=== PATIENT | male | born 1960 | race Two or more races ===

== ENCOUNTER 2021-06-11 04:28 | Emergency (ER) | payer MEDICAID ==
[~2021-06-11] VITALS: Ht 172.7 cm; Wt 89.8 kg
--- NOTE | 2021-06-11 04:30 | NUR ---
PT AAOX4. BIB SON C/O MID UPPER ABD PAIN SINCE YESTERDAY, -N/V. PLACED IN BED 10 ON MONITOR AND PULSE OX. VSS.
--- NOTE | 2021-06-11 06:13 | NUR ---
URINE COLLECTED, SENT TO LAB.
[2021-06-11] MEDS ORDERED: KETOROLAC TROMETHAMINE 15 MG/ML VIAL ONE (06:20)
[2021-06-11] MEDS ORDERED: MAG HYDROX/AL HYDROX/SIMETH 30 ML UDC ONE (06:20)
[2021-06-11] MEDS ORDERED: LIDOCAINE VISCOUS 2% UD 15 ML UDC ONE (06:21)
[2021-06-11] MEDS ORDERED: LIDOCAINE VISCOUS 2% UD 15 ML UDC MM ONE (06:30)
[2021-06-11] MEDS ORDERED: IV NS 0.9% 500 ML BAG IV ONE (06:30)
[2021-06-11] MEDS ORDERED: MAG HYDROX/AL HYDROX/SIMETH 30 ML UDC PO ONE (06:30)
[2021-06-11] MEDS ORDERED: KETOROLAC TROMETHAMINE INJ 30 MG/ML VIAL IV ONE (06:30)
[2021-06-11] MEDS ORDERED: ONDANSETRON HCL/PF - ER 4 MG/2 ML VIAL IV ONE (06:30)
[2021-06-11 06:35] LABS: BASOPHILS % (AUTO) 0.1 % (0.0-2.0); EOSINOPHILS % (AUTO) 0.1 % (0.0-6.0); HEMATOCRIT 42 % (39-51); HEMOGLOBIN 14.7 g/dL (13.5-17.5); LYMPHOCYTES % (AUTO) 7.2 % (20.0-44.0); MEAN CORPUSCULAR HGB CONC 35 g/dl (31.0-36.0); MEAN CORPUSCULAR VOLUME 100 fL (80-96); MONOCYTES # (AUTO) 0.5 K/uL (0.1-1.30); MONOCYTES % (AUTO) 3.6 % (2.0-12.0); NEUTROPHILS # (AUTO) 12.6 K/uL (1.8-8.9); PLATELET COUNT (AUTO) 219 K/uL (150-450); RED BLOOD CELL COUNT(AUTO) 4.19 MIL/uL (4.5-6.0); WHITE BLOOD COUNT (AUTO) 14.2 K/uL (4.3-11.0)
[2021-06-11] MEDS ORDERED: ONDANSETRON HCL/PF 4 MG/2 ML VIAL ONE (06:35)
[2021-06-11 06:54] LABS: ALBUMIN 4.2 g/dL (3.4-5.0); BILIRUBIN,DIRECT 0.3 mg/dL (0.0-0.2); BILIRUBIN,TOTAL 1.2 mg/dL (0.2-1.0); CALCIUM, SERUM 8.8 mg/dL (8.5-10.1); CREATININE 1.1 mg/dL (0.6-1.3); TOTAL PROTEIN, SERUM 8.5 g/dL (6.4-8.2)
[2021-06-11 06:58] LABS: POTASSIUM 2.7 mmol/L (3.5-5.1)
--- NOTE | 2021-06-11 07:12 | NUR ---
AWAITING COVID SWAB.
--- NOTE | 2021-06-11 07:25 | NUR ---
MOVE SHEET SUBMITTED.
[2021-06-11] MEDS ORDERED: ENOXAPARIN SODIUM 80 MG/0.8 ML DISP.SYRIN SQ ONE (07:30)
[2021-06-11 07:31] LABS: BILIRUBIN,URINE NEGATIVE (NEGATIVE); COLOR,URINE YELLOW (YELLOW); LEUKOCYTE ESTERASE ,URINE NEGATIVE (NEGATIVE); NITRITE, URINE NEGATIVE (NEGATIVE); PH,URINE 7.5 (5.0-8.0); PROTEIN,URINE 100 mg/dl (NEGATIVE); UGLUCOSE NEGATIVE (NEGATIVE); UROBILINOGEN,URINE 0.2 EU/dL (0.2)
--- NOTE | 2021-06-11 07:42 | NUR ---
COVID TEST COLLECTED AND SENT
[2021-06-11] MEDS ORDERED: POTASSIUM CHLORIDE 20 MEQ TAB.PRT.SR PO ONE ×2 (08:30→09:33)
[2021-06-11] MEDS ORDERED: AMLO-213 PO (08:40)
[2021-06-11] MEDS ORDERED: LOVA10TA PO (08:40)
[2021-06-11] MEDS ORDERED: ASPI-1420 PO (08:40)
[2021-06-11] MEDS ORDERED: LISI1TAB32 PO (08:40)
[2021-06-11] MEDS ORDERED: METF-440 PO (08:40)
[2021-06-11] MEDS ORDERED: GLYB5TAB7 PO (08:40)
[2021-06-11 08:46] LABS: BACTERIA,URINE Rare /HPF (None Seen); RBC,URINE 0-2 /HPF (0-2); SQUAMOUS EPITHELIAL CELL,UR Rare /HPF (None Seen); WBC,URINE NONE SEEN /HPF (0-3)
--- NOTE | 2021-06-11 09:19 | NUR ---
FAXED COVID RESULT TO [phone]
--- NOTE | 2021-06-11 09:27 | NUR ---
PT ACCEPTED TO [facility] AWAITING BED INFO.
[2021-06-11] MEDS: POTASSIUM CL. PREMIX PERIPHER. 50 ML IV SCH ×4 (09:30→12:33)
[2021-06-11] MEDS ORDERED: ENOXAPARIN SODIUM 100 MG/ML DISP.SYRIN SQ ONE (09:32)
[2021-06-11] MEDS ORDERED: POTASSIUM CL. PREMIX PERIPHER. 50 ML ONE (09:32)
[2021-06-11] MEDS ORDERED: POTASSIUM CL. PREMIX PERIPHER. 150 ML ONE (09:53)
--- NOTE | 2021-06-11 10:38 | NUR ---
Patient Tranfers to outside Facility Physician: Laura Location: [facility], Room 508 Phone:
--- NOTE | 2021-06-11 10:38 | NUR ---
Kyra zamarripa in [place] - 06/11/21 at 1104 by VIRIDIANA Patient Tranfers to outside Facility Physician: Location: [facility], Room 508 Phone:
--- NOTE | 2021-06-11 11:03 | NUR ---
REPORT GIVEN TO ZAKI FOR DONA
--- NOTE | 2021-06-11 12:07 | NUR ---
CALLED ALBERTO GANN [phone] TRANSPORT WITH [facility] AT [phone]
--- NOTE | 2021-06-11 13:48 | NUR ---
GENARO DOMINGUEZ AT [facility] [phone] REPEAT OF TRIPONIN PLEASE. FAX RESULTS TO: [phone] TY.
[2021-06-11 17:00] VITALS: BP 132/76
== END 2021-06-11 18:21 | disposition short-term general hospital (02) ==
LOC: ER 04:28
DX: I21.4 Non-ST elevation (NSTEMI) myocardial infarction (principal); E87.6 Hypokalemia; K80.20 Calculus of gallbladder without cholecystitis without obstruction; D72.829 Elevated white blood cell count, unspecified; Z20.822 Contact with and (suspected) exposure to COVID-19
CPT/HCPCS: 36415; 71045; 76705; 80048; 80076; 81001; 83690; 84484 ×2; 85025; 87426; 93005; 96361; 96365; 96366; 96372; 96375; 99291; C9803; J1650; J1885; J2405; J3480 ×2; J7030; J7040